=== PATIENT | female | born 1930 | race Caucasian/White ===

== ENCOUNTER 2019-11-11 13:12 | Inpatient (IN) | payer MEDICARE, OTHER ==
[~2019-11-11] VITALS: Ht 157.5 cm; Wt 96.5 kg
[2019-11-11 13:38] LABS: BASOPHILS ABSOLUTE AUTO 0.09 K/mm3 (0.00-0.23); BASOPHILS PERCENT AUTO 0 % (0-2); EOSINOPHILS ABSOLUTE AUTO 0.07 K/mm3 (0.00-0.68); EOSINOPHILS PERCENT AUTO 0 % (0-6); Hematocrit 36.9 % (33.0-51.0); IMMATURE GRAN ABSOLUTE AUTO 0.33 K/mm3 (0.00-0.10); IMMATURE GRAN PERCENT AUTO 2 % (0-1); LYMPHOCYTES ABSOLUTE AUTO 1.65 K/mm3 (0.84-5.20); LYMPHOCYTES PERCENT AUTO 8 % (21-46); MONOCYTES ABSOLUTE AUTO 1.33 K/mm3 (0.16-1.47); MONOCYTES PERCENT AUTO 6 % (4-13); Mean Corpuscular HGB 30.7 pg (26.0-34.0); Mean Corpuscular HGB Conc 35.2 g/dL (31.5-36.5); Mean Corpuscular Volume 87 fL (80-100); Mean Platelet Volume 8.9 fL (9.1-12.4); NEUTROPHILS ABSOLUTE AUTO 18.07 K/mm3 (1.96-9.15); NEUTROPHILS PERCENT AUTO 84 % (41-73); Platelet Count 446 K/mm3 (150-400); RDW Coefficient Variation 12.5 % (11.7-14.2); Red Blood Cell Count 4.23 M/mm3 (3.80-5.20); White Blood Cell Count 21.54 K/mm3 (4.00-11.30)
[2019-11-11 14:01] LABS: Alanine Aminotransfer (ALT/SGP 32 U/L (12-78); Albumin, Blood 2.6 g/dL (3.4-5.0); Albumin/Globulin Ratio 0.6 (0.8-1.8); Alk Phos 131 U/L (50-136); Anion Gap 10 mmol/L (6-16); Aspartate Aminotrans (AST/SGOT 33 U/L (12-37); Bilirubin, Total 0.3 mg/dL (0.1-1.0); Blood Urea Nitrogen 13 mg/dL (8-24); CO2, Blood 22 mmol/L (21-32); Chloride, Blood 87 mmol/L (98-108); Creatinine, Blood 0.77 mg/dL (0.40-1.00); Globulin, Blood 4.7 g/dL (2.2-4.0); Glomerular Filtration Rate >60 (60-); Glucose, Blood 122 mg/dL (70-99); Potassium, Blood 4.4 mmol/L (3.5-5.5); Sodium, Blood 119 mmol/L (136-145); Total Protein, Blood 7.3 g/dL (6.4-8.2)
[2019-11-11] MEDS ORDERED: ZOCOR20 MG PO (14:23)
[2019-11-11] MEDS ORDERED: Lopressor 50 mg50 MG PO (14:37)
[2019-11-11] MEDS ORDERED: LOSARTAN POTAS100 MG PO (15:39)
[2019-11-11] MEDS ORDERED: Afeditab Cr60 MG PO (15:39)
[2019-11-11] MEDS ORDERED: Aspir 8181 MG PO (15:39)
[2019-11-11] MEDS ORDERED: VITAMIN D33000 UNIT PO (15:39)
[2019-11-11] MEDS ORDERED: CENTRUM SILVER1 EAC3 PO (15:40)
--- NOTE | 2019-11-11 16:30 | NUR ---
ASSUMED CARE PT ALERT AND ORIENTED. VS STABLE. O2 SATS REMAIN ABOVE 90% ON 4L NC. LS COARSE THROUGHOUT AND COUGHING UP THICK YELLOW SPUTUM. HR NSR. BP STABLE. PT DENIES ANY PAIN. PT ABLE TO AMBULATE TO BSC NEEDED TO VOID, BUT HAS OCCASIONAL INCONTINENCE AND ATTENDS IN PLACE. PT ORIENTED TO UNIT. NS INFUSING PER ORDERS. WILL CONTINUE TO MONITOR AND REPORT TO ONCOMING RN. CALL LIGHT IN REACH.
--- NOTE | 2019-11-11 20:30 | NUR ---
Assumed care Pt alert and oriented, able to make needs known with call light, persistant cough, NC 4L (baseline RA), coarse L/S T/O. VSS. Pt is conversing appropriately with staff, moves all extremities weakly, SBA with 2 to bsc, unsteady and weak when up. Bed alarm on. Pt complaint with care. Pt complaining of feeling weak for a week, and states "im already starting to feel a little better." NS infusing at 125 mls/hr per orders. See shift assessment for detailed systems assessment. No acute concerns at this time. Will continue to monitor.
[2019-11-11 22:36] LABS: Adenovirus Not Detected (NOT DETECT); Bordetella pertussis Not Detected (NOT DETECT); Chlamydophila pneumoniae Not Detected (NOT DETECT); Coronavirus 229E Not Detected (NOT DETECT); Coronavirus HKU1 Not Detected (NOT DETECT); Coronavirus NL63 Not Detected (NOT DETECT); Coronavirus OC43 Not Detected (NOT DETECT); Human Metapneumovirus Not Detected (NOT DETECT); Human Rhinovirus/Enterovirus Not Detected (NOT DETECT); Influenza A Not Detected (NOT DETECT); Influenza A/2009-H1 Not Detected (NOT DETECT); Influenza A/H1 Not Detected (NOT DETECT); Influenza A/H3 Not Detected (NOT DETECT); Influenza B Not Detected (NOT DETECT); Mycoplasma pneumoniae Not Detected (NOT DETECT); Parainfluenza Virus 1 Not Detected (NOT DETECT); Parainfluenza Virus 2 Not Detected (NOT DETECT); Parainfluenza Virus 3 Not Detected (NOT DETECT); Parainfluenza Virus 4 Not Detected (NOT DETECT); Respiratory Syncytial Virus Not Detected (NOT DETECT)
[2019-11-12 04:08] LABS: BASOPHILS ABSOLUTE AUTO 0.07 K/mm3 (0.00-0.23); BASOPHILS PERCENT AUTO 0 % (0-2); EOSINOPHILS ABSOLUTE AUTO 0.18 K/mm3 (0.00-0.68); EOSINOPHILS PERCENT AUTO 1 % (0-6); Hemoglobin 11.2 g/dL (11.5-16.0); IMMATURE GRAN ABSOLUTE AUTO 0.21 K/mm3 (0.00-0.10); IMMATURE GRAN PERCENT AUTO 1 % (0-1); LYMPHOCYTES ABSOLUTE AUTO 2.14 K/mm3 (0.84-5.20); LYMPHOCYTES PERCENT AUTO 12 % (21-46); MONOCYTES ABSOLUTE AUTO 1.07 K/mm3 (0.16-1.47); MONOCYTES PERCENT AUTO 6 % (4-13); Mean Corpuscular HGB 29.9 pg (26.0-34.0); Mean Corpuscular HGB Conc 33.9 g/dL (31.5-36.5); Mean Corpuscular Volume 88 fL (80-100); Mean Platelet Volume 8.8 fL (9.1-12.4); NEUTROPHILS ABSOLUTE AUTO 13.61 K/mm3 (1.96-9.15); NEUTROPHILS PERCENT AUTO 79 % (41-73); Platelet Count 405 K/mm3 (150-400); RDW Coefficient Variation 12.9 % (11.7-14.2); RDW Standard Deviation 41.5 fL (35.1-46.3); Red Blood Cell Count 3.75 M/mm3 (3.80-5.20); White Blood Cell Count 17.28 K/mm3 (4.00-11.30)
[2019-11-12 04:30] LABS: Alanine Aminotransfer (ALT/SGP 30 U/L (12-78); Albumin, Blood 2.2 g/dL (3.4-5.0); Albumin/Globulin Ratio 0.5 (0.8-1.8); Alk Phos 111 U/L (50-136); Anion Gap 7 mmol/L (6-16); Aspartate Aminotrans (AST/SGOT 22 U/L (12-37); Bilirubin, Total 0.3 mg/dL (0.1-1.0); Blood Urea Nitrogen 16 mg/dL (8-24); Bun/Creatinine Ratio 20.7 (12.0-20.0); CO2, Blood 24 mmol/L (21-32); Calcium, Blood 9.2 mg/dL (8.5-10.1); Chloride, Blood 93 mmol/L (98-108); Creatinine, Blood 0.77 mg/dL (0.40-1.00); Globulin, Blood 4.1 g/dL (2.2-4.0); Glomerular Filtration Rate >60 (60-); Glucose, Blood 100 mg/dL (70-99); Potassium, Blood 4.5 mmol/L (3.5-5.5); Sodium, Blood 124 mmol/L (136-145); Total Protein, Blood 6.3 g/dL (6.4-8.2)
--- NOTE | 2019-11-12 05:56 | NUR ---
Shift Summary No acute events this shift. Pt unable to sleep much this shift d/t persistant cough, tesslon pearls effective. Pt weak throughout, requires 1-2 person for SBA to BSC. Pt incont of urine, attends in place and dry at this time. Pt able to make needs known with call light. No changes to oxygen requirement overnight, remains on 4L NC. Baseline is RA. Lungs coarse throughout. No events on tele. Pt remains alert and oriented. VSS. Will continue to montior.
--- NOTE | 2019-11-12 07:27 | NUR ---
ASSUMED CARE: PT RESTING QUIETLY AT THIS TIME. O2 4L IN PLACE VIA NC. NO ACUTE NEEDS OR CONCERNS AT THIS TIME.
--- NOTE | 2019-11-12 09:00 | NUR ---
DR RICHARD CAME IN TO SEE PT. DISCUSSED STATUS WITH HER AND DOCTOR STATES TO KEEP PCU STATUS ONE MORE DAY. DC PLANNING AWARE
--- NOTE | 2019-11-12 09:56 | NUR ---
PERMISSION PT GAVE PERMISSION OF CARE ON 11/12/2019.
--- NOTE | 2019-11-12 18:23 | NUR ---
SHIFT SUMMARY: PT IS ON 2L NC. TITRATED DOWN FROM 4L. PT REMAINS SOB WITH EXERTION AND SOB WITH SPEECH, ONLY ABLE TO SAY 2-3 WORDS AT A TIME. FAMILY CURRENTLY AT BEDSIDE. NO ACUTE NEEDS OR CONCERNS AT THIS TIME. POSSIBLE STATUS CHANGE IN AM
[2019-11-13 04:09] LABS: BASOPHILS ABSOLUTE AUTO 0.07 K/mm3 (0.00-0.23); BASOPHILS PERCENT AUTO 1 % (0-2); EOSINOPHILS ABSOLUTE AUTO 0.34 K/mm3 (0.00-0.68); EOSINOPHILS PERCENT AUTO 2 % (0-6); Hemoglobin 11.7 g/dL (11.5-16.0); IMMATURE GRAN ABSOLUTE AUTO 0.37 K/mm3 (0.00-0.10); IMMATURE GRAN PERCENT AUTO 3 % (0-1); LYMPHOCYTES ABSOLUTE AUTO 2.09 K/mm3 (0.84-5.20); LYMPHOCYTES PERCENT AUTO 14 % (21-46); MONOCYTES ABSOLUTE AUTO 0.96 K/mm3 (0.16-1.47); MONOCYTES PERCENT AUTO 7 % (4-13); Mean Corpuscular HGB 30.2 pg (26.0-34.0); Mean Corpuscular HGB Conc 33.4 g/dL (31.5-36.5); Mean Corpuscular Volume 90 fL (80-100); Mean Platelet Volume 8.8 fL (9.1-12.4); NEUTROPHILS ABSOLUTE AUTO 10.67 K/mm3 (1.96-9.15); NEUTROPHILS PERCENT AUTO 74 % (41-73); Platelet Count 431 K/mm3 (150-400); RDW Coefficient Variation 13.2 % (11.7-14.2); RDW Standard Deviation 43.5 fL (35.1-46.3); Red Blood Cell Count 3.88 M/mm3 (3.80-5.20)
[2019-11-13 04:30] LABS: Anion Gap 7 mmol/L (6-16); Blood Urea Nitrogen 17 mg/dL (8-24); Bun/Creatinine Ratio 22.6 (12.0-20.0); CO2, Blood 24 mmol/L (21-32); Calcium, Blood 9.7 mg/dL (8.5-10.1); Chloride, Blood 101 mmol/L (98-108); Creatinine, Blood 0.75 mg/dL (0.40-1.00); Glomerular Filtration Rate >60 (60-); Glucose, Blood 107 mg/dL (70-99); Potassium, Blood 4.7 mmol/L (3.5-5.5); Sodium, Blood 132 mmol/L (136-145)
--- NOTE | 2019-11-13 06:05 | NUR ---
SHIFT SUMMARY PT REMAINS ALERT AND ORIENTED. LUNGS ARE COARSE, BUT CLEAR WHEN PATIENT COUGHS. PT INCONTINENT, ATTENDS IN PLACE. THREE VOIDS OVERNIGHT. VSS. AFEBRILE. NO ACUTE EVENTS OVERNIGHT. WILL CONTINUE TO MONITOR.
--- NOTE | 2019-11-13 07:31 | NUR ---
ASSUMED CARE: PT RESTING QUIETLY AT THIS TIME, ON 1LNC, SATTING MID 90S. APPEARS TO BE SPEAKING EASIER. DENIES NEEDS OR CONCERNS AT THIS TIME.
--- NOTE | 2019-11-13 10:00 | NUR ---
DR RICHARD CHANGED PT TO MEDICAL STATUS. OT CAME TO SEE PT SO WILL WORK WITH HER PRIOR TO TRANSFER. BOILERMAKER FITTER AWARE
--- NOTE | 2019-11-13 10:46 | NUR ---
PT ARRIVED TO ROOM FROM PCU VIA W/C. SHE WAS ABLE TO SELF TRANSFER TO THE BED. SHE IS MILDLY SOB WITH EXERTION. AND HER LUNG SOUNDS ARE COARSE BUT SHE DENIES ANY RESP DISTRESS. SHE DOES HAVE A PRODUCTIVE COUGH. PT IS A/O X 4 AND VERY PLEASANT. SHES RESTING IN BED. CALL LIGHT IN REACH.
--- NOTE | 2019-11-13 11:00 | NUR ---
REPORT CALLED TO [facility] ON MEDICAL FLOOR. PT WORKED WITH OT THEN TRANSFERRED VIA WHEEL CHAIR BY MANAGER WIND. PT'S DAUGHTER HANNAH WAS CALLED WITH UPDATE AND NEW ROOM NUMBER.
--- NOTE | 2019-11-13 15:50 | NUR ---
SHIFT SUMMARY PT IS A/O X 4 WITH C/O BACK PAIN X 1, TYLENOL WAS GIVEN ORDERED AND EFFECTIVE. SINCE TRANSFER FROM PCU PT HAS BEEN RESTING IN BED. SHE CONTINUES ON 1 LPM OF O2 VIA N.C. WITH NO S/S OF RESPIRATORY DISTRESS. PT IS PLEASANT AND COOPERATIVE WITH HER CARE. SHE DRINKS WATER WITHOUT ENCOURAGEMENT. HER DAUGHTER HAS BEEN AT THE BEDSIDE THIS AFTERNOON. PT IS ABLE TO MAKE HER NEEDS KNOWN AND CALLS FOR HELP WHEN NEEDED. SHE IS A STAND BY ASSIST TO THE TOILET. SHES RESTING IN BED NOW AND HAS HER CALL LIGHT IN REACH.
--- NOTE | 2019-11-14 04:05 | NUR ---
SLEPT INTERMITTANTLY ALL NIGHT. TROUBLES WITH HYPERTENSION EARLY PART OF THE SHIFT. PRESSURES WERE RUNNING IN THE 140'S AND 150'S ALL DAY. AT 1999, BLOOD PRESSURE ON CAPSULE MACHINE WAS 241/95 WITH HR OF 81. WHEN THIS RN RECHECKED MANUALLY, PRESSURE WAS 168/72 WITH HR OF 72. HOSPITALIST WAS CALLED AND ORDER FOR HYDRALAZINE 10MG IV WAS GIVEN. BLOOD PRESSURES CAME VERY SLOWLY STEADILY DOWN OVERNIGHT REACHING 150/78 THIS MORNING. PATIENT WAS ASYMPTOMATIC OF PRESSURES OVERNIGHT.
[2019-11-14 05:47] LABS: Anion Gap 6 mmol/L (6-16); Blood Urea Nitrogen 16 mg/dL (8-24); Bun/Creatinine Ratio 24.2 (12.0-20.0); CO2, Blood 26 mmol/L (21-32); Calcium, Blood 9.9 mg/dL (8.5-10.1); Chloride, Blood 102 mmol/L (98-108); Creatinine, Blood 0.66 mg/dL (0.40-1.00); Glomerular Filtration Rate >60 (60-); Glucose, Blood 102 mg/dL (70-99); Potassium, Blood 4.3 mmol/L (3.5-5.5); Sodium, Blood 134 mmol/L (136-145)
--- NOTE | 2019-11-14 07:45 | NUR ---
PT SYSTOLIC BP > 200 PER CAPSULE. MANUAL BP PERFORMED, 170/72. HYDRALAZINE 10 MG IV PRN ADMINISTERED PER EMAR. BP RECHECKED, 150/49.
--- NOTE | 2019-11-14 17:02 | NUR ---
PT HAS BEEN ALERT AND ORIENTED THROUGHOUT THIS SHIFT. PT 1 PERSON ASSIST WITH FWW TO BATHROOM. PT SHORT OF BREATH AFTER AMBULATING TO BATHROOM AND BACK. PT BP 170/72 THIS AM. PT MEDICATED WITH APRESALINE, BP RECHECKED, BP 150/49. THIS AFTERNOON PT'S BP 186/76. DR WHITFIELD CONTACTED PRIOR TO ADMINISTERING APRESALINE PRN DUE TO NEW COZAAR ORDER. DR WHITFIELD SAID ADMINISTER COZAAR AND HOLD APRESALINE AT THIS TIME. BP TO BE RECHECKED. PT CURRENTLY SLEEPING IN BED.
--- NOTE | 2019-11-15 06:37 | NUR ---
SHIFT SUMMARY PATIENT ALERT AND ORIENTED OVERNIGHT. RECEIVED ONE DOSE OF HYDRALAZINE FOR HIGH BLOOD PRESSURE THIS SHIFT. PATIENT ABLE TO SLEEP FAIRLY WELL MOST OF THE NIGHT AND ONLY WOKE UP A FEW TIMES. SHE IS CURRENTLY ON 2 LITERS O2 VIA NASAL CANULA. BED IN LOWEST POSITION WITH WHEELS LOCKED AND ALARM ON. CALL LIGHT WITHIN REACH. REPORT GIVEN TO ONCMIREYA OLIVER.
--- NOTE | 2019-11-15 12:00 | NUR ---
SPOKE TO DR WHITFIELD- PT SBP GREATER THAN 180. PER DR DO NOT USE IV MEDS, NEW PO MEDS PLACED IN THE PT EMAR AND GIVEN. WILL CALL DR WITH RESULTING BLOOD PRESSURE.
--- NOTE | 2019-11-15 14:15 | NUR ---
CALLED DR WHITFIELD WITH RESULTING BLOOD PRESSURE- PER DR WHITFIELD PT BP WILL IMPROVE ONCE SHE DISCHARGES AND STARTS TAKING HER MEDICATIONS THE WAY SE HAS BEEN AT HOME. ONE MORE BP MED TO BE ADDED TO THE PT HOME MED REC UPON DISCHARGE. PT TO DISCHARGE SHORTLY DR WORKING ON DISCHARGE MED LIST. PT HAS NOT BEEN RECIEVING ALL HOME MEDICATIONS DURING THIS ADMIT PER . SPOKE TO PT DAUGHTER AND SHE IS AWARE OF DISCHARGE PLANS.
[2019-11-15] MEDS ORDERED: AZIT500 PO (15:04)
[2019-11-15] MEDS ORDERED: ACET325 PO (15:04)
[2019-11-15] MEDS ORDERED: DOCU100 PO (15:05)
[2019-11-15] MEDS ORDERED: HYDCHL25 PO (15:06)
[2019-11-15] MEDS ORDERED: GUAI600T33 PO (15:06)
--- NOTE | 2019-11-15 17:11 | NUR ---
DISCHARGE NOTE- PT AND DAUGHTER WERE GIVEN VERBAL AND WRITTEN DISCHARGE INSTRUCTIONS AND ACKNOWLEDGED UNDERSTANDING OF THEM. PT ALERT ON ROOM AIR WITH NO S&S OF DISTRESS NOTED. WENT OVER PT MEDICATIONS WITH FAMILY AND MEDS WERE FAXED TO [facility] PER PT REWUEST. PT ESCORTED OUT VIA WC. IV DC'D PRIOR TO DISCHARGE.
== END 2019-11-15 16:39 | disposition home health service (06) | DRG 193 ==
LOC: ER 13:12 → PCU 15:48 → MEDS 11-13 10:30
PROVIDERS: Emergency Medicine; ADMIT Internal Medicine
DX: J14 Pneumonia due to Hemophilus influenzae (principal); J96.01 Acute respiratory failure with hypoxia; E87.1 Hypo-osmolality and hyponatremia; K59.00 Constipation, unspecified; I10 Essential (primary) hypertension; Z85.3 Personal history of malignant neoplasm of breast; Z85.118 Personal history of other malignant neoplasm of bronchus and lung; Z85.038 Personal history of other malignant neoplasm of large intestine; Z85.528 Personal history of other malignant neoplasm of kidney; E78.00 Pure hypercholesterolemia, unspecified; Z86.711 Personal history of pulmonary embolism; M48.00 Spinal stenosis, site unspecified
CPT/HCPCS: 0099U; 36415; 71046; 80048; 80053; 83605; 83690; 85025; 87040; 87070; 87077; 87185; 87205; 93005; 93010; 94640; 94760; 94762; 96365; 97110; 97116; 97161; 97165; 97535; 99285-25; A9270; J0360; J0456; J0696; J1650; J7030; J7050

== ENCOUNTER → 2019-12-03 | Outpatient (CLI) | payer MEDICARE, OTHER ==
[~2019-12-03] MED LIST: ACET325 PO; AZIT500 PO; Afeditab Cr60 MG PO; Aspir 8181 MG PO; CENTRUM SILVER1 EAC3 PO; DOCU100 PO; GUAI600T33 PO; HYDCHL25 PO; LOSARTAN POTAS100 MG PO; Lopressor 50 mg50 MG PO; VITAMIN D33000 UNIT PO; ZOCOR20 MG PO
[2019-12-03 14:41] LABS: BASOPHILS ABSOLUTE AUTO 0.11 K/mm3 (0.00-0.23); BASOPHILS PERCENT AUTO 1 % (0-2); EOSINOPHILS PERCENT AUTO 3 % (0-6); Hematocrit 38.7 % (33.0-51.0); Hemoglobin 12.8 g/dL (11.5-16.0); IMMATURE GRAN ABSOLUTE AUTO 0.05 K/mm3 (0.00-0.10); IMMATURE GRAN PERCENT AUTO 0 % (0-1); LYMPHOCYTES ABSOLUTE AUTO 3.52 K/mm3 (0.84-5.20); LYMPHOCYTES PERCENT AUTO 29 % (21-46); MONOCYTES ABSOLUTE AUTO 1.03 K/mm3 (0.16-1.47); MONOCYTES PERCENT AUTO 8 % (4-13); Mean Corpuscular HGB 30.2 pg (26.0-34.0); Mean Corpuscular HGB Conc 33.1 g/dL (31.5-36.5); Mean Corpuscular Volume 91 fL (80-100); Mean Platelet Volume 9.2 fL (9.1-12.4); NEUTROPHILS PERCENT AUTO 58 % (41-73); Platelet Count 486 K/mm3 (150-400); RDW Coefficient Variation 14.1 % (11.7-14.2); RDW Standard Deviation 47.1 fL (35.1-46.3); Red Blood Cell Count 4.24 M/mm3 (3.80-5.20); White Blood Cell Count 12.21 K/mm3 (4.00-11.30)
[2019-12-03 14:55] LABS: Bun/Creatinine Ratio 20.4 (12.0-20.0); Calcium, Blood 9.7 mg/dL (8.5-10.1); Creatinine, Blood 1.03 mg/dL (0.40-1.00); Potassium, Blood 4.4 mmol/L (3.5-5.5); Troponin I 0.021 ng/mL (0.000-0.040)
== END | disposition home or self-care (01) ==
LOC: LAB EV 14:37 → LAB SHORT 14:37
PROVIDERS: Physician Assistant Surgical
DX: R10.13 Epigastric pain (principal); R06.00 Dyspnea, unspecified
CPT/HCPCS: 80048; 83880; 84484; 85025